=== PATIENT | female | born 1985 | race Two or more races ===

== ENCOUNTER 2022-04-18 05:46 | Inpatient (IN) ==
[2022-04-18 05:59] VITALS: BMI 22.3
[2022-04-18 06:25] LABS: BILIRUBIN,URINE NEGATIVE (NEGATIVE); BLOOD/HEMOGLOBIN,URINE NEGATIVE (NEGATIVE); GLUCOSE, URINE NEGATIVE (NEGATIVE); KETONES,URINE NEGATIVE (NEGATIVE); LEUKOCYTE ESTERASE ,URINE NEGATIVE (NEGATIVE); NITRITES,URINE NEGATIVE (NEGATIVE); PROTEIN,URINE 2+ (NEGATIVE); UROBILINOGEN,URINE NORMAL (NORMAL)
[2022-04-18 06:32] LABS: APPEARANCE,URINE SLIGHTLY HAZY (CLEAR); COLOR,URINE YELLOW (YELLOW)
[2022-04-18 06:33] LABS: BACTERIA,URINE TRACE /HPF (NEGATIVE); RBC,URINE 0-2 /HPF (0-3); SQUAMOUS EPITHELIAL CELL,UR FEW /HPF (NEGATIVE)
[2022-04-18 06:46] LABS: BASOPHILS # (AUTO) 0.1 X10^3/uL (0.0-0.1); BASOPHILS % (AUTO) 0.6 % (0.2-1.0); EOSINOPHILS # (AUTO) 0.1 x10^3/uL (0.0-0.2); EOSINOPHILS % (AUTO) 0.9 % (0.9-2.9); HEMATOCRIT 39.1 % (36.0-47.0); HEMOGLOBIN 13.1 g/dL (12.0-16.0); LYMPHOCYTES % (AUTO) 23.6 % (21.0-51.0); MEAN CORPUSCULAR HEMOGLOBIN 29.8 pg (27.0-34.0); MEAN CORPUSCULAR HGB CONC 33.5 g/dL (33.0-35.0); MEAN CORPUSCULAR VOLUME 89.1 fL (80.0-100.0); MEAN PLATELET VOLUME 11.5 fL (7.4-11.0); MONOCYTES # (AUTO) 0.5 x10^3/uL (0.3-0.8); MONOCYTES % (AUTO) 6.2 % (0.0-13.0); NEUTROPHILS # (AUTO) 5.7 x10^3/uL (2.2-4.8); NEUTROPHILS % (AUTO) 68.7 % (42.0-75.0); RED BLOOD COUNT 4.39 X10^6/uL (3.5-5.4); RED CELL DISTRIBUTION WIDTH 14.9 % (11.6-16.5); WHITE BLOOD COUNT 8.3 X10^3/uL (3.6-10.0)
[2022-04-18] MEDS ORDERED: LR 1,000 ML IV 1,000 ML IV ONE ×3 (06:46→08:03)
[2022-04-18 06:48] LABS: AMNISURE ROM TEST NO MEMBRANES RUPTURE (NO RUPTURE)
[2022-04-18 06:55] LABS: ALANINE AMINOTRANSFERASE 15 Units/L (12-78); ALBUMIN 2.8 g/dL (3.4-5.0); ALKALINE PHOSPHATASE 180 Units/L (46-116); ASPARTATE AMINO TRANSFERASE 23 Units/L (15-37); BLOOD UREA NITROGEN 10 mg/dL (7-18); CARBON DIOXIDE 23.6 mmol/L (21-32); CHLORIDE 101 mmol/L (98-107); CREATININE 0.59 mg/dL (0.55-1.02); SODIUM 134 mmol/L (136-145); TOTAL PROTEIN 7.4 g/dL (6.4-8.2); eGFR NON BLACK RACES > 60 (>60)
[2022-04-18 07:04] LABS: BILIRUBIN,URINE NEGATIVE (NEGATIVE); BLOOD/HEMOGLOBIN,URINE 1+ (NEGATIVE); GLUCOSE, URINE NEGATIVE (NEGATIVE); KETONES,URINE NEGATIVE (NEGATIVE); LEUKOCYTE ESTERASE ,URINE NEGATIVE (NEGATIVE); NITRITES,URINE NEGATIVE (NEGATIVE); PH,URINE 6.5 (5.0 - 8.0); PROTEIN,URINE 2+ (NEGATIVE); UROBILINOGEN,URINE NORMAL (NORMAL)
[2022-04-18 07:12] LABS: APPEARANCE,URINE SLIGHTLY HAZY (CLEAR); COLOR,URINE YELLOW (YELLOW)
[2022-04-18 07:13] LABS: BACTERIA,URINE TRACE /HPF (NEGATIVE); RBC,URINE 0-2 /HPF (0-3); SQUAMOUS EPITHELIAL CELL,UR RARE /HPF (NEGATIVE)
[2022-04-18] MEDS ORDERED: NS 100 ML IV 100 ML ONE (08:01)
[2022-04-18] MEDS ORDERED: ANCEF VIAL 1 GRAM ONE (08:01)
[2022-04-18] MEDS ORDERED: REGLAN INJ 10 MG VIAL ONE (08:12)
[2022-04-18] MEDS ORDERED: PEPCID 20 MG VIAL ONE (08:12)
[2022-04-18] MEDS ORDERED: ZOFRAN INJ 4 MG VIAL ONE (08:12)
[2022-04-18] MEDS ORDERED: ZOFRAN INJ 4 MG VIAL IVP ONE (08:15)
[2022-04-18] MEDS ORDERED: PEPCID 20 MG VIAL IVP ONE (08:15)
[2022-04-18] MEDS ORDERED: REGLAN INJ 10 MG VIAL IVP ONE (08:15)
[2022-04-18] MEDS ORDERED: MARCAINE SPINAL ONE (08:41)
[2022-04-18] MEDS ORDERED: DILAUDID INJ ONE (08:41)
[2022-04-18] MEDS ORDERED: OFIRMEV IV 1000 MG VIAL 1,000 MG/100 ML VIAL IV ONE (08:42)
[2022-04-18] MEDS ORDERED: TORADOL 30 MG VIAL ONE (08:42)
[2022-04-18] MEDS ORDERED: XYLOCAINE 2 % (PLAIN) ONE (08:42)
[2022-04-18] MEDS ORDERED: EPHEDRINE SULFATE INJ ONE (08:42)
[2022-04-18] MEDS ORDERED: PITOCIN ONE (09:20)
[2022-04-18] MEDS ORDERED: BENADRYL INJ 50 MG VIAL IVP PRN ×2 (09:55→10:36)
[2022-04-18] MEDS ORDERED: NARCAN INJ IVP PRN ×2 (09:56→10:36)
[2022-04-18] MEDS ORDERED: PERCOCET TAB 5/325 MG PO PRN ×2 (09:56→10:36)
[2022-04-18] MEDS ORDERED: TORADOL 30 MG VIAL IVP PRN ×2 (09:56→10:36)
[2022-04-18] MEDS ORDERED: BACTROBAN TOPICAL OINT ONE (09:57)
[2022-04-18] MEDS ORDERED: ZOFRAN INJ 4 MG VIAL IVP PRN (10:36)
[2022-04-18] MEDS ORDERED: MYLICON TAB 80 MG CHEW PO PRN (10:36)
[2022-04-18] MEDS ORDERED: REGLAN INJ 10 MG VIAL IVP PRN (10:36)
[2022-04-18] MEDS ORDERED: PHENERGAN INJ 25 MG IM PRN (10:36)
[2022-04-18] MEDS ORDERED: D5 1/2 NS 1,000 mL + PITOCIN 20 UNITS/L IV 20 UNITS/1,000 ML BAG IV ONE (11:00)
[2022-04-18] MEDS ORDERED: D5 1/2 NS 1,000 ML 1,000 ML with PITOCIN 20 UNITS IV SCH ×2 (11:00)
[2022-04-19 05:22] LABS: HEMATOCRIT 30.9 % (36.0-47.0)
[2022-04-19 05:33] LABS: HEMOGLOBIN 10.5 g/dL (12.0-16.0)
[2022-04-19] MEDS: MOTRIN TAB 800 MG PO PRN ×2 (08:30→21:32)
[2022-04-19] MEDS: PRENATAL PLUS PO SCH (08:30)
[2022-04-20] MEDS: PRENATAL PLUS PO SCH (08:48)
[2022-04-20] MEDS: MOTRIN TAB 800 MG PO PRN (08:49)
[2022-04-20 17:22] VITALS: BP 125/83
== END 2022-04-20 13:00 | disposition home or self-care (01) | DRG 785 ==
LOC: ER 05:50 → LD 08:00 → MED/SURG 10:46
PROVIDERS: ADMIT Obstetrics & Gynecology Obstetrics; ATTEND Obstetrics & Gynecology Obstetrics
DX: Z30.2 Encounter for sterilization; Z37.0 Single live birth; O34.211 Maternal care for low transverse scar from previous cesarean delivery; Z3A.39 39 weeks gestation of pregnancy; N85.8 Other specified noninflammatory disorders of uterus